=== PATIENT | female | born 1960 | race African-American/Black ===

== ENCOUNTER 2017-05-31 18:52 | Emergency (ER) | payer OTHER, SELFPAY ==
[~2017-05-31 18:52] MED LIST: ISOVUE-370 76%-LOCM 1 ML ONE
[2017-05-31] MEDS ORDERED: Acetaminophen 120 MG Suppository ONE (19:47)
[2017-05-31 19:50] LABS: #Basophils 0.1 thou/uL (0.0-0.2); #Lymphocytes 2.2 thou/uL (1.20-3.40); #Monocytes 0.7 thou/uL (0.11-0.59); %Basophils 0.7 % (0.0-1.0); %Eosinophils 0.3 % (0.0-10.0); %Lymphocytes 20.3 % (21.0-51.0); %Neutrophils 72.7 % (42.0-75.0); Hemoglobin 17.4 g/dL (12.0-16.0); Mean Corpuscular HGB CONC 32.4 g/dL (32.0-36.0); Mean Corpuscular Hemoglobin 31.2 pg (27.0-31.0); Mean Corpuscular Volume 96.4 fl (81.0-99.0); Mean Platelet Volume 8.8 fL (7.4-10.4); Platelet Count 284 thou/uL (130-400); RBC Distribution Width 12.5 % (11.5-14.5); Red Blood Cell (RBC) Count 5.55 mill/uL (4.20-5.40)
[2017-05-31 20:42] LABS: Bilirubin Small (Negative); Blood, Urine Large (Negative); Clarity CLEAR (Clear); Glucose, Urine (Dipstick) Negative (Negative); Leukocyte Negative (Negative); Nitrite Negative (Negative); Protein, Urine (Dipstick) 100 mg/dL (Neg-Trace); Specific Gravity, Urine 1.025 (1.002-1.036)
[2017-05-31 20:45] LABS: Bacteria/HPF None Seen HPF (None Seen); Hyaline Casts/LPF 0-3 HYALINE CAST LPF (0-3 Hyaline); Pathc Cast-AUWi Flag 0.67 (0-2.49); RBC/HPF GREATER THAN 50-TNTC HPF (0-3); Squamous Epithelial 0-3 HPF (0-3); WBC/HPF 0-3 HPF (0-3)
[2017-05-31] MEDS ORDERED: Lidocaine 2% Viscous Solution 10 ML, Aluminum & Magnesium Hydroxide 20 ML, Donnatal Eli... SSW SCH (20:45)
--- NOTE | 2017-05-31 21:02 | RAD ---
AP CHEST: Indication: Abdominal pain with vomiting. IMPRESSION: No acute cardiopulmonary abnormality. Cholecystectomy clips are seen within the right upper quadrant. The examination is not appreciably changed from comparison dated 10-28-16. POS: [facility]
[2017-05-31 21:14] LABS: Albumin 4.8 g/dL (3.5-5.0)
[2017-05-31 21:15] LABS: Chloride 101 mmol/L (98-107); Potassium 3.4 mmol/L (3.5-5.1); Sodium 139 mmol/L (136-145)
[2017-05-31 21:16] LABS: Calcium 10.7 mg/dL (7.8-10.44); Glucose 89 mg/dL (70-105)
[2017-05-31 21:17] LABS: Globulin 3.6 g/dL (2.4-3.5); Protein, Total 8.4 g/dL (6.0-8.3)
[2017-05-31 21:18] LABS: Anion Gap 18 mmol/L (10-20); Bilirubin, Total 0.3 mg/dL (0.2-1.2); Carbon Dioxide 23 mmol/L (22-29)
[2017-05-31 21:19] LABS: Alkaline Phosphatase 73 U/L (40-150)
[2017-05-31 21:20] LABS: Calc. Creatinine Clearance 0 mL/min (70-130); Estimated GFR-MDRD Greater than 90
[2017-05-31 21:21] LABS: AST (SGOT) 22 U/L (5-34); BUN (Urea Nitrogen) 14 mg/dL (9.8-20.1)
[2017-05-31 21:22] LABS: ALT (SGPT) 18 U/L (8-55)
[2017-05-31 21:23] LABS: Lipase 11 U/L (8-78)
[2017-05-31 21:25] LABS: CKMB 0.9 ng/mL (0-6.6); Troponin I 0.014 ng/mL (< 0.028)
[2017-05-31] MEDS ORDERED: Fentanyl 100 MCG/2 ML VIAL ONE (21:52)
[2017-05-31] MEDS ORDERED: cefTRIAXone\\ROCEPHIN 500 MG VIAL ONE (22:15)
[2017-05-31] MEDS ORDERED: Sucralfate 1 GM/10 ML UDCUP ONE (23:25)
--- NOTE | 2017-05-31 23:55 | CT ---
CTA OF THE CHEST AND ABDOMEN UTILIZING AORTIC DISSECTION PROTOCOL AND 3D REFORMATS: FINDINGS: No areas of occlusion or aneurysmal formation is evident. There is moderate atherosclerotic calcifica tions involving the abdominal aorta. Common iliacs are widely patent. Celiac, SMA, and renal arteries are patent. The MONA is patent. Lungs are clear. Gallbladder is surgically absent. There is wall thickening involving the distal stomach which may be related to under distention. Gastr itis is not excluded. There is hypodensity adjacent to the falciform ligament of the liver. The pancreas, adrenal glands, and spleen appear within normal limits. There are tiny hypodensities involving the kidneys which noris ot be characterized due to their size. There is colonic diverticulosis. There is scattered degenerative change. IMPRESSION: 1. No appreciable stenosis, occlusion, or aneurysmal formation demonstrated. 2. Suggested wall thickening involving the distal gastric body and antrum may reflect changes of unde r distention. A gastritis, however, cannot be entirely excluded. 3. Cholecystectomy. 4. Fatty infiltration of the liver adjacent to the falciform ligament. 5. Tiny renal hypodensity too small to fully characterize due to their size. 6. Colonic diverticulosis. POS: [facility]
--- NOTE | 2017-06-05 15:37 | EKG ---
Test Reason : Blood Pressure : / mmHG Vent. Rate : 077 BPM Atrial Rate : 077 BPM P-R Int : 136 ms QRS Dur : 092 ms QT Int : 390 ms P-R-T Axes : 059 011 051 degrees QTc Int : 441 ms Normal sinus rhythm Possible Left atrial enlargement ST abnormality, possible digitalis effect Abnormal ECG Confirmed by ZEE WHITNEY, ANIKA ([id number]), communications editor SANTOS CALLEJAS ([id number]) on 06/05/2017 3:37:12 PM Referred By: Confirmed By:ANIKA KOCH MD
== END 2017-06-01 | disposition home or self-care (01) ==
LOC: ERS 18:52
DX: R10.13 Epigastric pain (principal); G43.909 Migraine, unspecified, not intractable, without status migrainosus; K21.9 Gastro-esophageal reflux disease without esophagitis; J44.9 Chronic obstructive pulmonary disease, unspecified; I25.2 Old myocardial infarction; F17.210 Nicotine dependence, cigarettes, uncomplicated; Z79.899 Other long term (current) drug therapy
CPT/HCPCS: 36415; 71045; 71275; 80053; 81003; 81015; 82553; 83605; 83690; 84484; 85025; 93005; 96374; 99406; J0696; J3010

== ENCOUNTER 2017-06-03 06:08 | Inpatient (IN) | payer OTHER, SELFPAY ==
[~2017-06-03 06:08] MED LIST changes: +Iopamidol 370 76% 50 ML VIAL FS ONE
[2017-06-03] MEDS ORDERED: Pantoprazole 40 MG VIAL ONE ×2 (06:40→06:41)
[2017-06-03] MEDS ORDERED: Ondansetron HCl/PF 4 MG/2 ML Vial ONE (06:40)
[2017-06-03 06:45] LABS: #Basophils 0.1 thou/uL (0.0-0.2); #Eosinphils 0.1 thou/uL (0.0-0.7); #Monocytes 1.3 thou/uL (0.11-0.59); #Neutrophils 9.6 thou/uL (1.40-6.50); %Basophils 0.8 % (0.0-1.0); %Eosinophils 0.4 % (0.0-10.0); %Lymphocytes 15.2 % (21.0-51.0); %Monocytes 9.7 % (0.0-10.0); %Neutrophils 73.9 % (42.0-75.0); Hemoglobin 16.9 g/dL (12.0-16.0); Mean Corpuscular HGB CONC 33.5 g/dL (32.0-36.0); Mean Corpuscular Hemoglobin 31.5 pg (27.0-31.0); Mean Corpuscular Volume 94.2 fl (81.0-99.0); Mean Platelet Volume 7.6 fL (7.4-10.4); Platelet Count 338 thou/uL (130-400); RBC Distribution Width 12.2 % (11.5-14.5); Red Blood Cell (RBC) Count 5.35 mill/uL (4.20-5.40)
[2017-06-03 07:11] LABS: CKMB 1.1 ng/mL (0-6.6)
[2017-06-03 08:29] LABS: Bilirubin Negative (Negative); Blood, Urine Large (Negative); Clarity CLEAR (Clear); Glucose, Urine (Dipstick) Negative (Negative); Leukocyte Negative (Negative); Nitrite Negative (Negative); Protein, Urine (Dipstick) 30 mg/dL (Neg-Trace); Specific Gravity, Urine 1.017 (1.002-1.036); Urobilinogen 0.2 mg/dL (0.2-1.0)
[2017-06-03 08:32] LABS: Bacteria/HPF None Seen HPF (None Seen); RBC/HPF 21-50 HPF (0-3); Squamous Epithelial 0-3 HPF (0-3)
--- NOTE | 2017-06-03 08:35 | CT ---
CONTRAST ENHANCED ABDOMEN AND PELVIC CT: Comparison: 05-31-17 Indication: Pain. FINDINGS: The lung bases are clear where visualized. Prior cholecystectomy. There is a subcentimeter partially calcified left renal artery aneurysm, 5-6 mm in size. Punctate hypoattenuation of the right kidney is too small to fully characterize. No adrenal mass. No peripancreatic inflammation. No ascites or free air. There is colonic diverticulosis. No CT evidence to indicate acute appendicitis. Contrast opacif ied portions of the small bowel are nondilated. There is wall thickening of the urinary bladder, inco mpletely distended, which does limit evaluation. Prominent degenerative change at the lumbosacral jerry ction noted. Previously mentioned wall prominence of the distal stomach is grossly stable and remains limited by t he under distended state of the stomach. Mildly enlarged adjacent perigastric lymph nodes are present . IMPRESSION: 1. Chronic diverticulosis. 2. Wall prominence of the under distended urinary bladder. There is a slight area of perivesicular st randing. This is not specific. Recommend correlation with urinary laboratory values to exclude cystit is. 3. Small 5-6 mm left renal artery aneurysm, partially calcified. 4. Incompletely evaluated, as was previously mentioned, the is wall prominence of the region of the g astric antrum. The possibility of gastritis or mass not excluded. Adjacent mildly prominent lymph nod es could be reactive versus neoplastic. Follow up with gastroenterology consultation and endoscopy wo uld prove useful. POS: [facility]
[2017-06-03 08:39] LABS: Pathc Cast-AUWi Flag 2.84 (0-2.49)
[2017-06-03 08:49] LABS: Hyaline Casts/LPF 0-3 HYALINE CAST LPF (0-3 Hyaline); Manual Microscopic Reviewed? No Path Casts Seen
[2017-06-03] MEDS ORDERED: Metoclopramide HCl 10 MG/2 ML VIAL ONE (08:55)
[2017-06-03 09:06] LABS: Albumin 3.6 g/dL (3.5-5.0)
[2017-06-03 09:07] LABS: Chloride 100 mmol/L (98-107); Sodium 136 mmol/L (136-145)
[2017-06-03 09:08] LABS: Calcium 8.9 mg/dL (7.8-10.44)
[2017-06-03 09:09] LABS: Globulin 2.5 g/dL (2.4-3.5); Glucose 104 mg/dL (70-105); Protein, Total 6.1 g/dL (6.0-8.3)
[2017-06-03 09:10] LABS: Anion Gap 14 mmol/L (10-20); Bilirubin, Total 0.3 mg/dL (0.2-1.2); Carbon Dioxide 25 mmol/L (22-29)
[2017-06-03 09:11] LABS: Alkaline Phosphatase 52 U/L (40-150)
[2017-06-03 09:12] LABS: Calc. Creatinine Clearance 0 mL/min (70-130); Estimated GFR-MDRD 50
[2017-06-03 09:13] LABS: BUN (Urea Nitrogen) 24 mg/dL (9.8-20.1)
[2017-06-03 09:14] LABS: ALT (SGPT) 11 U/L (8-55); AST (SGOT) 16 U/L (5-34)
[2017-06-03 09:15] LABS: CK (CPK) 61 U/L (29-168); Lipase 20 U/L (8-78)
[2017-06-03 10:23] LABS: Troponin I 0.033 ng/mL (< 0.028)
[2017-06-03 11:07] LABS: Lactic Acid 3.9 mmol/L (0.5-2.2)
[2017-06-03 12:15] LABS: Creatinine, Urine 122.46 mg/dL (47-110)
--- NOTE | 2017-06-03 12:35 | HP-2 ---
DATE OF SERVICE: 06/03/2017 at 10:30 a.m. CODE STATUS: FULL CODE. PRIMARY CARE PHYSICIAN: Dr. Barak Ugalde. ATTENDING DOCTOR: Dr. Maynard. RESIDENT: Jimbo Barreto MD HISTORIAN: Patient. CHIEF COMPLAINT: Nausea, vomiting, and abdominal pain. HISTORY OF PRESENT ILLNESS: A 57-year-old female with past medical history of coronary artery diseas e status post RI in 2003 and stent placement, COPD, chronic back pain, and migraines, who presents wi th persistent nausea and vomiting and associated epigastric pain characterized as sharp, that has pro gressively worsened over the last few days despite being seen in the ER 2 days ago and being given Zo daniella and Bentyl and discharged home. She has had multiple episodes of nonbilious and nonbloody emesi s since then. She also endorses decreased appetite for multiple years. She had an EGD done [address] Marshall that showed ulcer. CT in the ER was suspicious for possible gastric mass. In the E R, the patient received 10 mg of IV Reglan, 20 mg of IM Bentyl, Zofran 8 mg IV, 40 mg Protonix IV, an d 1 liter bolus of normal saline. PAST MEDICAL HISTORY: 1. Coronary artery disease status post RI in 2003, status post stent. 2. Chronic obstructive pulmonary disease. 3. Chronic back pain. 4. Migraines. PAST SURGICAL HISTORY: 1. Cholecystectomy. 2. Partial hysterectomy. 3. Tonsillectomy. 4. Tubal ligation. ALLERGIES: 1. CODEINE. 2. IBUPROFEN. 3. IMITREX. 4. SUMATRIPTAN. 5. TYLENOL #3. MEDICATIONS: 1. Protonix 40 mg p.o. daily. 2. Hydrochlorothiazide 25 mg p.o. daily. 3. Carafate 1 gram p.o. 4 times a day. FAMILY HISTORY: Significant for hypertension and diabetes. SOCIAL HISTORY: The patient denied alcohol or drug use, but she endorsed a [id number] smoking hist ory, currently smoking a pack every week or two. REVIEW OF SYSTEMS: Twelve point review of systems including general, eyes, ENT, respiratory, CV, GI, , skin, musculoskeletal, neuro and psych all reviewed and were unremarkable unless otherwise state d in the HPI. PHYSICAL EXAMINATION: VITAL SIGNS: Blood pressure 164/104, pulse 89, respiratory rate 19, T-max 98.0, pulse ox 97% on room air, current weight 54 kilograms. GENERAL: Patient is alert and oriented x3, no acute distress, but is in obvious pain and having obvi ous nausea. She is well-developed, well-nourished, appropriately interactive. HEENT: Eyes: Pupils equal, round, reactive to light and accommodation. Extraocular muscles intact. Conjunctivae within normal limits. ENT: Tympanic membranes pearly chakraborty without bulging or erythema. Nasal mucosa and oropharynx slight ly dry. NECK: Supple without lymphadenopathy or thyromegaly. CARDIOVASCULAR: Regular rate and rhythm. No murmurs or gallops. RESPIRATORY: Normal effort, no retractions. LUNGS: Clear to auscultation bilaterally. SKIN: Warm and dry without cyanosis or lesions. ABDOMEN: Soft with some fullness in the epigastric region and epigastric tenderness to palpation. B owel sounds normoactive. No rigidity. No rebound tenderness. EXTREMITIES: No clubbing, cyanosis or edema. MUSCULOSKELETAL: Structure and tone within normal limits. Full range of motion. NEUROLOGIC: No focal deficits. Sensation within normal limits. PSYCHIATRIC: Appropriate. LABORATORY DATA: White blood cell count 13.0, hemoglobin 16.9, hematocrit 50.4, MCV 94, 73% neutroph ils, platelets 338. Sodium 136, potassium 3.0, chloride 100, carbon dioxide 25, BUN 24, creatinine 1 .31, glucose 104, calcium 8.3, total protein 6.1, albumin 3.6, total bilirubin 0.3, AST 16, ALT 11, a lkaline phosphatase 52, lactic acid 2.8, CK 61, CK-MB 1.1, troponin 0.03, lipase 20. UA was signific ant for large blood, 30 protein, 21-50 red blood cells, and 4-6 white blood cells. There were no dylon teria seen. EKG showed new ST depression compared to previous EKG and normal sinus rhythm. IMAGING: CT abdomen and pelvis showed chronic diverticulosis as well prominence in the region of the gastric antrum, gastritis, mass not excluded with adjacent mildly prominent lymph node (reactive billie tatiana neoplastic). ASSESSMENT AND PLAN: A 57-year-old female with intractable nausea and vomiting. 1. Intractable nausea and vomiting. Admitted to inpatient tele. Consult GI. CT suspicious for pos sible gastric mass, etiology of intractable nausea and vomiting, not clear at this time, possibly se condary to mass versus gastritis versus ulcer. No signs of obstruction on CT. The patient is n.p.o. P.r.n. Zofran and Reglan and supportive therapy. 2. Acute kidney injury, likely prerenal, likely secondary to dehydration. 3. IV fluids, normal saline at 100 mL an hour. Trend GFR, it appears looking at past visits, the shweta aguiar's baseline creatinine has been 0.5-0.4 in the past. 4. Hypokalemia, currently 3.1. Replace and continue to monitor. 5. Hyperlactatemia likely secondary to dehydration/hypoperfusion. Bolus 1 liter of normal saline in the ER. We will continue IV fluids, normal saline at 100 mL an hour. 6. Indeterminate troponins. The patient seems asymptomatic. Denied chest pain. We will trend trop onins and CK-MB possibly due to demand versus hypoperfusion. 7. Dehydration, likely secondary to #1. IV fluids, normal saline at 100 mL an hour. 8. Diet n.p.o. 9. Code status: FULL CODE. 10. Activity: ad harrison. 11. Deep venous thrombosis prophylaxis, sequential compression devices. 12. Microscopic hematuria. The patient is asymptomatic. Check urine cultures and continue to monit or. DISPOSITION AND LENGTH OF HOSPITAL STAY: Two days. Symptomatic medication will be provided. History and physical exam as well as management discussed with Dr. Maynard.
[2017-06-03 12:49] LABS: Troponin I 0.028 ng/mL (< 0.028)
[2017-06-03] MEDS ORDERED: Acetaminophen 325 MG TAB PO PRN (13:01)
[2017-06-03] MEDS ORDERED: Ondansetron HCl/PF 4 MG/2 ML Vial IVP PRN (13:01)
--- NOTE | 2017-06-03 14:30 | CON ---
DATE OF CONSULTATION: 06/03/2017 HISTORY OF PRESENT ILLNESS: The patient is a 57-year-old female with a 4-5 day history of intractabl e nausea and vomiting. She reports she has been unable to swallow or keep food down because of vomit ing. She also complains of severe epigastric pain. She has had similar type symptoms in the past an d has undergone an upper endoscopy by Dr. Marshall, the last being in 08/2011 at which time she had an an tral ulcer. She does use BC Powder. The patient underwent an EGD back in 08/2011, which showed antr al ulcer. The patient takes BC powder on a daily basis. She reports 2-3 times per day. She is an a ctive smoker. PAST MEDICAL HISTORY: Significant for gastroesophageal reflux, gastric ulcer, migraine headaches, hy perlipidemia and chronic back pain. PAST SURGICAL HISTORY: Includes cholecystectomy, hysterectomy, tonsillectomy and tubal ligation. MEDICATIONS: Include pantoprazole 40 mg p.o. q. day, dicyclomine p.r.n., an unknown antihypertensive . ALLERGIES: Include IMITREX and TYLENOL #3. SOCIAL HISTORY: She does smoke. Does not drink. FAMILY HISTORY: Negative for GI or liver disease. REVIEW OF SYSTEMS: Ten systems were reviewed and were negative except for above. PHYSICAL EXAMINATION: GENERAL: Shows a well-developed, well-nourished female in no acute distress. VITAL SIGNS: Stable. She is afebrile. HEENT: Unremarkable. NECK: Supple. CHEST: Clear. CARDIOVASCULAR: Regular rate and rhythm. ABDOMEN: Soft, tender in the epigastric area without rebound or guarding. Bowel sounds are present and normoactive. RECTAL: Deferred. EXTREMITIES: Normal. NEUROLOGIC: Nonfocal. ASSESSMENT: 1. Epigastric pain, intractable nausea and vomiting. 2. History of peptic ulcer disease. 3. Gastroesophageal reflux disease. 4. Positive tobacco use. 5. Chronic migraine headaches, taking BC Powder daily. RECOMMENDATIONS: 1. IV PPI. 2. EGD tomorrow. 3. Serial hemoglobin and hematocrit.
[2017-06-03] MEDS: Sodium Chloride 0.9% 1,000 ML IV SCH ×2 (14:45→22:25)
[2017-06-03] MEDS: Potassium Chloride 20 MEQ in Sodium Chloride 0.9% 250 ML 250 ML IVPB SCH ×3 (14:58→23:57)
[2017-06-03 16:28] LABS: Lactic Acid 1.7 mmol/L (0.5-2.2)
[2017-06-03 16:37] LABS: Troponin I 0.023 ng/mL (< 0.028)
[2017-06-03] MEDS ORDERED: Dicyclomine 10 MG CAP PO PRN (18:35)
[2017-06-03] MEDS: traMADol HCl 50 MG TAB PO PRN (18:47)
[2017-06-04] MEDS: traMADol HCl 50 MG TAB PO PRN ×3 (00:50→16:51)
[2017-06-04 01:27] LABS: Amphetamine Not Detected (NotDetected); Barbiturates Screen Detected (NotDetected); Benzodiazepine Screen Not Detected (NotDetected); Cocaine Metabolite Screen Not Detected (NotDetected); Medtox Control Line Valid? VALID (VALID); Medtox Reader # READER 4; Methadone Not Detected (NotDetected); Methamphetamine Not Detected (NotDetected); Opiate Screen Detected (NotDetected); Oxycodone Screen Not Detected (NotDetected); Phencyclidine (PCP) Not Detected (NotDetected); THC/Cannabinoid Screen Not Detected (NotDetected); Tricyclic Screen Not Detected (NotDetected)
[2017-06-04] MEDS: Sodium Chloride 0.9% 1,000 ML IV SCH ×3 (03:31→11:34)
--- NOTE | 2017-06-04 05:45 | HP ---
DATE OF SERVICE: 06/03/2017 CHIEF COMPLAINT: Nausea, vomiting, and abdominal pain. HISTORY OF PRESENT ILLNESS: The patient is a 57-year-old female with past medical history of coronar y artery disease, COPD, chronic back pain, and migraines who presented to the ER with several day his tory of nausea and vomiting. The patient noted that she presented to the ER approximately 4 days ago for similar symptoms and was given Zofran and potentially Bentyl, although she denies that at home. Over the course of the next couple of days, her abdominal pain worsened and she then started develop ing diarrhea. The patient notes that she has not been able to keep down either solids or liquids at this time. CT was done in the ER which was suspicious for gastric mass. The patient has been given I V Reglan, Bentyl, Zofran, and Protonix as well as fluid bolus. For the full past medical history, please see the resident's dictation as well as the review of monica figueroa. PHYSICAL EXAMINATION: VITAL SIGNS: Blood pressure 164/104, pulse 89, respiration rate 19, temperature 98.0, pulse ox is 97 % on room air. GENERAL: The patient is awake, alert, and oriented, in no acute distress, but is obviously nauseated and dry heaving after the abdominal exam. EYES: Pupils are equal, round, reactive to light and accommodation. Extraocular muscles intact. ENT: Oropharynx and nasopharynx are without erythema, but she does have dry mucous membranes. NECK: Supple without lymphadenopathy, thyromegaly or bruits. CARDIOVASCULAR: Regular rate and rhythm without murmurs, gallops, or rubs. LUNGS: Clear to auscultation bilaterally without wheezing or rhonchi. ABDOMEN: Soft, nondistended, with tenderness to palpation in the epigastric region. She has no rebo und tenderness or rigidity. Bowel sounds are present. EXTREMITIES: There is no clubbing, cyanosis, or edema. LABORATORY: 1. CBC: WBC 13.0, hemoglobin 16.9, hematocrit 50.4, platelets 338. 2. CMP: Sodium 136, potassium 3.0, chloride 100, bicarbonate 25, BUN 24, creatinine 1.31, glucose 1 04, calcium 8.3, total protein 6.1, albumin 3.6, total bilirubin 0.3, AST 16, ALT 11, alkaline phosph atase 52. 3. Lactic acid 2.8. 4. Cardiac enzymes: CK 61, CK-MB 1.1, troponin 0.03. 5. Lipase 20. 6. Urinalysis showed large blood, protein 30 and 4-6 white blood cells, but no bacteria. IMAGIN. EKG showed no ST depression compared to previous exams. 2. CT of abdomen and pelvis showed chronic diverticulosis as well as a possible mass near the region of the gastric antrum. ASSESSMENT AND PLAN: 1. Intractable nausea, vomiting, and diarrhea. Patient will be admitted to telemetry. GI will be c onsulted as the patient probably needs an EGD and potential biopsy of this mass. She will be given m edications for nausea as well as put on IV fluids. 2. Diarrhea: We will get stool studies as well. 3. Acute kidney injury: IV fluids and trend the creatinine. This is likely secondary to dehydratio n. 4. Hypokalemia: Replace potassium and recheck in the morning. 5. Lactic acidosis: Continue IV fluids and trend the lactate. 6. Indeterminate troponins. The patient is being admitted to telemetry. This could be due from dem and ischemia secondary to her dehydration. Further workup will be determined based on her clinical c ourse. 7. Please see Dr. Barreto's dictation for the full history, physical, assessment and plan. We discuss ed the case and I agree with his documentation and repeated pertinent portions of the history and phy sical myself.
[2017-06-04 06:28] LABS: #Basophils 0.1 thou/uL (0.0-0.2); #Eosinphils 0.1 thou/uL (0.0-0.7); #Lymphocytes 2.4 thou/uL (1.20-3.40); #Neutrophils 6.1 thou/uL (1.40-6.50); %Basophils 0.6 % (0.0-1.0); %Eosinophils 0.8 % (0.0-10.0); %Lymphocytes 25.1 % (21.0-51.0); %Monocytes 10.1 % (0.0-10.0); %Neutrophils 63.4 % (42.0-75.0); Mean Corpuscular HGB CONC 32.9 g/dL (32.0-36.0); Mean Corpuscular Hemoglobin 31.7 pg (27.0-31.0); Mean Corpuscular Volume 96.3 fl (81.0-99.0); Mean Platelet Volume 7.7 fL (7.4-10.4); Platelet Count 281 thou/uL (130-400); RBC Distribution Width 12.2 % (11.5-14.5); Red Blood Cell (RBC) Count 4.42 mill/uL (4.20-5.40); White Blood Cell (WBC) Count 9.6 thou/uL (4.8-10.8)
[2017-06-04 06:47] LABS: Anion Gap 13 mmol/L (10-20); BUN (Urea Nitrogen) 11 mg/dL (9.8-20.1); Calc. Creatinine Clearance 73 mL/min (70-130); Calcium 9.1 mg/dL (7.8-10.44); Carbon Dioxide 20 mmol/L (22-29); Chloride 108 mmol/L (98-107); Estimated GFR-MDRD Greater than 90; Glucose 100 mg/dL (70-105); Potassium 3.4 mmol/L (3.5-5.1); Sodium 138 mmol/L (136-145)
[2017-06-04] MEDS ORDERED: Lidocaine 1% PF 5 ML VIAL ONE (06:59)
[2017-06-04] MEDS ORDERED: PROPOFOL 200 MG/20 ML VIAL ONE (06:59)
--- NOTE | 2017-06-04 08:38 | PDOC.FM ---
- Subjective Subjective: Pt states that she feels better today and has improved n/v and associated abd pain. She is scheduled for an EGD this morning. There were no acute events over night. - Objective MAR Reviewed: Yes Vital Signs & Weight: Vital Signs (12 hours) Temp Pulse Resp BP Pulse Ox 06/04/17 04:20 94 L 06/04/17 04:00 99.3 F 80 18 132/71 94 L 06/04/17 00:45 77 16 179/92 H 96 Weight Weight 54.476 kg I&O: 06/03/17 06/04/17 06/05/17 06:59 06:59 06:59 Intake Total 1640 Output Total 650 Balance 990 Result Diagrams: 06/04/17 05:54 06/04/17 05:54 Phys Exam - Physical Examination Constitutional: NAD HEENT: PERRLA, moist MMs Neck: no nodes, no JVD, supple Respiratory: clear to auscultation bilateral Cardiovascular: RRR, no significant murmur Gastrointestinal: soft, non-tender, no distention, positive bowel sounds Musculoskeletal: no edema Neurological: non-focal Psychiatric: normal affect, A&O x 3 Skin: no rash, normal turgor Dx/Plan (1) Intractable nausea and vomiting Code(s): R11.2 - NAUSEA WITH VOMITING, UNSPECIFIED Status: Acute (2) Acute kidney injury Code(s): N17.9 - ACUTE KIDNEY FAILURE, UNSPECIFIED Status: Resolved (3) HTN (hypertension) Code(s): I10 - ESSENTIAL (PRIMARY) HYPERTENSION Status: Chronic Qualifiers: Hypertension type: essential hypertension Qualified Code(s): I10 - Essential (primary) hypertension (4) GERD (gastroesophageal reflux disease) Code(s): K21.9 - GASTRO-ESOPHAGEAL REFLUX DISEASE WITHOUT ESOPHAGITIS Status: Chronic Qualifiers: Esophagitis presence: esophagitis presence not specified Qualified Code(s) : K21.9 - Gastro-esophageal reflux disease without esophagitis (5) Hypokalemia Code(s): E87.6 - HYPOKALEMIA Status: Acute - Plan Plan: 1. intractable nausea/vomiting - n/v is now controlled - Per GI, pt will have an EGD today. Previous EGD found an antral ulcer. Current CT shows concern for antral mass - further plan pending EGD results and GI recommendation 2. GENOVEVA - 2/2 vomiting - resolved w/IVF -continue to monitor bmp 3. hypokalemia - 2/2 to vomiting - improved today, will replace in am if it continues to be low. 4. HTN - there is likely some amount of untreated chronic HTN, however periodic peaks are probably related to pain - continue to monitor BP and consider starting antihypertensive if she continues to be consistently hypertensive - out patient follow up recommended. 5. GERD - continue protonix Dispo: pt is stable today. Possibly ready for dc today pending results of EGD.
[2017-06-04] MEDS ORDERED: Pantoprazole 40 MG VIAL IVP SCH (09:00)
[2017-06-04 12:33] VITALS: BMI 22.6
--- NOTE | 2017-06-04 14:03 | OP ---
PREOPERATIVE DIAGNOSES: 1. Abnormal CT scan. 2. Persistent nausea and vomiting. DESCRIPTION OF PROCEDURE: After informed consent was obtained, the patient was placed in the left la teral decubitus position. Anesthesia was administered per the Anesthesia Department. Forward endosc ope was inserted into the esophagus under direct visualization with ease and passed to the second por tion of the duodenum with ease. Second portion of the duodenum and duodenal bulb were normal. The p ylorus was normal. The antrum showed a large 3 cm ulcer. This ulcer had a clean white base. No act dat bleeding, no visible vessels were seen. The ulcer edge was biopsied. Retroflexion in the stomac h was normal. The esophagus was normal throughout. ASSESSMENT: 1. Large antral ulcer - clean white based ulcer without bleeding or visible vessel; status post biop sy. 2. Otherwise, normal esophagogastroduodenoscopy. RECOMMENDATIONS: 1. PPI chronically. 2. Discontinue BC powder. 3. Stop smoking. 4. Stable from GI standpoint for discharge.
[2017-06-04] MEDS ORDERED: Ondansetron HCl/PF 4 MG/2 ML Vial IVP PRN (14:35)
[2017-06-04] MEDS ORDERED: Ondansetron ODT 4 MG TAB PO PRN (15:02)
[2017-06-04 17:53] VITALS: BP 173/81; TEMP 99.5
--- NOTE | 2017-06-07 10:35 | DIS-2 ---
DATE OF ADMISSION: 06/03/2017 DATE OF DISCHARGE: 06/04/2017 RESIDENT: Bo Harvey D.O. ADMITTING ATTENDING: Ana Rosa Maynard M.D. DISCHARGE ATTENDING: Ana Rosa Maynard M.D. CONSULTATIONS: GI, Dr. Rao Valente. PROCEDURE PERFORMED: Esophagogastroduodenoscopy. PRIMARY DIAGNOSES: Intractable nausea and vomiting secondary to antral gastric ulcer. SECONDARY DIAGNOSES: Microscopic hematuria, acute kidney injury, hypokalemia, dehydration, indetermi ines troponins, COPD, GERD and hypertension. DISCHARGE MEDICATIONS: Bentyl 20 mg p.o. t.i.d., Protonix 40 mg p.o. daily, tramadol 50 mg p.o. q.6 hours p.r.n. pain, Symbicort 160/4.5 mg 1 puff INH b.i.d. and Zofran 4 mg p.o. q.6 hours p.r.n. nause a and vomiting. DISCONTINUED MEDICATIONS: NSAIDs and aspirin. HOSPITAL COURSE: The patient was admitted to the hospital due to intractable nausea and vomiting and associated dehydration. On CT abdomen, there was a concern for possible mass in the antrum of the dima guidry. It had been since at least 2016 since her previous EGD where a biopsy was noted, the patient states that due to a chronic headache, she has been taking BC Powder multiple times daily for an ext ended period of time. GI was consulted who then performed an EGD. The EGD found the antral ulcer wi thout an obvious superficial vessel. Biopsy was taken and patient was determined to be appropriate f or outpatient care. Additionally, microscopic hematuria was incidentally noted on a UA and in the ER , it was recommended that the patient seek further follow up from a PCP for this hematuria. DISPOSITION: Stable. DISCHARGE INSTRUCTIONS: 1. Location: Home. 2. Diet: Regular diet. 3. Activity: Ad harrison. 4. Followup: With Dr. Valente within a week. Follow up with PCP, Dr. Ugalde within a week and follow up with Dr. Solo, other urologist for the microhematuria.
== END 2017-06-04 18:35 | disposition home or self-care (01) | DRG 384 ==
LOC: ERS 06:08 → 2NO 14:22
PROVIDERS: ADMIT Family Medicine; ATTEND Family Medicine
PROC: 0DB78ZX Excision of Stomach, Pylorus, Via Natural or Artificial Opening Endoscopic, Diagnostic (ICD-10-PCS; principal; 2017-06-03)
DX: K25.9 Gastric ulcer, unspecified as acute or chronic, without hemorrhage or perforation (principal); N17.9 Acute kidney failure, unspecified; E87.2 Acidosis; R11.2 Nausea with vomiting, unspecified; G43.909 Migraine, unspecified, not intractable, without status migrainosus; I25.10 Atherosclerotic heart disease of native coronary artery without angina pectoris; J44.9 Chronic obstructive pulmonary disease, unspecified; G89.29 Other chronic pain; M54.9 Dorsalgia, unspecified; E87.6 Hypokalemia; E86.0 Dehydration; I25.2 Old myocardial infarction; Z95.5 Presence of coronary angioplasty implant and graft; Z88.6 Allergy status to analgesic agent; Z88.5 Allergy status to narcotic agent; Z88.8 Allergy status to other drugs, medicaments and biological substances; F17.210 Nicotine dependence, cigarettes, uncomplicated; K57.30 Diverticulosis of large intestine without perforation or abscess without bleeding; R31.21 Asymptomatic microscopic hematuria; K21.9 Gastro-esophageal reflux disease without esophagitis; I10 Essential (primary) hypertension; E78.5 Hyperlipidemia, unspecified
CPT/HCPCS: 36415; 74177; 80048; 80053; 80306; 81003; 81015; 82550; 82553; 82570; 83605; 83690; 83935; 84300; 84484; 85025; 87086; 88305; 88312; 93005; 96361; 96372; 96374; 96375; 99406; C9113; J2001; J2405; J2704; J2765; J3480; J7050

== ENCOUNTER 2017-10-03 09:17 | Emergency (ER) | payer OTHER ==
[2017-10-03 10:35] LABS: ALT (SGPT) 10 U/L (8-55); AST (SGOT) 15 U/L (5-34); Albumin 4.5 g/dL (3.5-5.0); Alkaline Phosphatase 74 U/L (40-150); Anion Gap 17 mmol/L (10-20); BUN (Urea Nitrogen) 10 mg/dL (9.8-20.1); Bilirubin, Total 0.3 mg/dL (0.2-1.2); Calc. Creatinine Clearance 0 mL/min (70-130); Calcium 9.9 mg/dL (7.8-10.44); Carbon Dioxide 20 mmol/L (22-29); Chloride 106 mmol/L (98-107); Estimated GFR-MDRD Greater than 90; Globulin 3.2 g/dL (2.4-3.5); Glucose 104 mg/dL (70-105); Potassium 3.5 mmol/L (3.5-5.1); Protein, Total 7.7 g/dL (6.0-8.3); Sodium 139 mmol/L (136-145)
[2017-10-03 10:37] LABS: CKMB 0.6 ng/mL (0-6.6)
[2017-10-03 10:41] LABS: Lipase 9 U/L (8-78)
[2017-10-03] MEDS ORDERED: Pantoprazole 40 MG VIAL ONE (10:53)
[2017-10-03] MEDS ORDERED: Ondansetron ODT 4 MG TAB ONE (10:54)
[2017-10-03 11:00] LABS: Hemoglobin 16.2 g/dL (12.0-16.0); Lymphocytes 14 % (21-51); MDiff Complete? YES; Mean Corpuscular HGB CONC 34.4 g/dL (32.0-36.0); Mean Corpuscular Hemoglobin 31.7 pg (27.0-31.0); Mean Corpuscular Volume 92.2 fl (81.0-99.0); Mean Platelet Volume 7.2 fL (7.4-10.4); Monocytes 3 % (0-10); Neutrophil 80 % (42-75); PLT Morphology Comment Appears Adequate; Platelet Count 328 thou/uL (130-400); RBC Distribution Width 12.6 % (11.5-14.5); RBC Morphology Normal; Reactive Lymphocytes 1 % (0-10); Red Blood Cell (RBC) Count 5.12 mill/uL (4.20-5.40); White Blood Cell (WBC) Count 11.1 thou/uL (4.8-10.8)
== END 2017-10-03 11:58 | disposition home or self-care (01) ==
LOC: ERS 09:17
DX: R10.13 Epigastric pain (principal); I10 Essential (primary) hypertension; I25.2 Old myocardial infarction; G43.909 Migraine, unspecified, not intractable, without status migrainosus; J44.9 Chronic obstructive pulmonary disease, unspecified; K21.9 Gastro-esophageal reflux disease without esophagitis; F17.210 Nicotine dependence, cigarettes, uncomplicated; Z79.899 Other long term (current) drug therapy
CPT/HCPCS: 36415; 80053; 82553; 83690; 84484; 85025; 93005; 94760; 96361; 96374; C9113; Q0162

== ENCOUNTER 2017-12-15 16:43 | Outpatient (CLI) | payer OTHER | END 2017-12-15 16:44 | disposition home or self-care (01) | LOC: BICRAD 16:43 | PROVIDERS: ATTEND Family Medicine | DX: M54.5 Low back pain (principal); M25.551 Pain in right hip; M25.552 Pain in left hip; M47.896 Other spondylosis, lumbar region | CPT/HCPCS: 72100 ==

== ENCOUNTER 2018-08-01 07:29 | Emergency (ER) | payer OTHER ==
[2018-08-01] MEDS ORDERED: Ondansetron PF 4 MG/2 ML Vial ONE (07:45)
[2018-08-01 07:58] LABS: Bilirubin Small (Negative); Blood, Urine Large (Negative); Clarity CLEAR (Clear); Glucose, Urine (Dipstick) Negative (Negative); Leukocyte Negative (Negative); Nitrite Negative (Negative); Protein, Urine (Dipstick) 300 mg/dL (Neg-Trace); Specific Gravity, Urine 1.035 (1.002-1.036); pH, Urine 5.5 (5.0-9.0)
[2018-08-01 08:01] LABS: Bacteria/HPF None Seen HPF (None Seen); Hyaline Casts/LPF 7-10 HYALINE CAST LPF (0-3 Hyaline); Pathc Cast-AUWi Flag 1.59 (0-2.49); RBC/HPF GREATER THAN 50-TNTC HPF (0-3); Squamous Epithelial 0-3 HPF (0-3)
[2018-08-01] MEDS ORDERED: Mag-Al 1200 mg/1200 mg/30 ML UDCUP ONE (08:15)
[2018-08-01] MEDS ORDERED: Lidocaine Viscous Sol 2% 15 ml UD Cup ONE (08:15)
[2018-08-01 08:17] LABS: #Basophils 0.1 thou/uL (0.0-0.2); #Eosinphils 0.1 thou/uL (0.0-0.7); #Lymphocytes 1.8 thou/uL (1.20-3.40); #Monocytes 0.5 thou/uL (0.11-0.59); %Basophils 0.5 % (0.0-1.0); %Eosinophils 0.7 % (0.0-10.0); %Lymphocytes 14.1 % (21.0-51.0); %Monocytes 4.3 % (0.0-10.0); %Neutrophils 80.3 % (42.0-75.0); Hemoglobin 15.8 g/dL (12.0-16.0); Mean Corpuscular HGB CONC 32.3 g/dL (32.0-36.0); Mean Corpuscular Hemoglobin 30.2 pg (27.0-31.0); Mean Corpuscular Volume 93.4 fL (78.0-98.0); Mean Platelet Volume 8.1 fL (7.4-10.4); Platelet Count 409 thou/uL (130-400); RBC Distribution Width 13.2 % (11.5-14.5); Red Blood Cell (RBC) Count 5.22 mill/uL (4.20-5.40); White Blood Cell (WBC) Count 12.5 thou/uL (4.8-10.8)
[2018-08-01 08:35] LABS: ALT (SGPT) 10 U/L (8-55); AST (SGOT) 14 U/L (5-34); Albumin 4.5 g/dL (3.5-5.0); Alkaline Phosphatase 106 U/L (40-150); Anion Gap 17 mmol/L (10-20); BUN (Urea Nitrogen) 16 mg/dL (9.8-20.1); Bilirubin, Total 0.2 mg/dL (0.2-1.2); Calc. Creatinine Clearance 0 mL/min (70-130); Carbon Dioxide 21 mmol/L (22-29); Chloride 107 mmol/L (98-107); Estimated GFR-MDRD Greater than 90; Globulin 3.6 g/dL (2.4-3.5); Glucose 115 mg/dL (70-105); Lipase 13 U/L (8-78); Potassium 3.3 mmol/L (3.5-5.1); Protein, Total 8.1 g/dL (6.0-8.3); Sodium 142 mmol/L (136-145)
[2018-08-01] MEDS ORDERED: Famotidine/PF 20 mg/2ml Vial ONE (09:38)
[2018-08-01] MEDS ORDERED: Haloperidol Lactate 5 MG/ML VIAL ONE (10:35)
== END 2018-08-01 13:11 | disposition home or self-care (01) ==
LOC: ERS 07:29
DX: R11.2 Nausea with vomiting, unspecified (principal); I10 Essential (primary) hypertension; G43.909 Migraine, unspecified, not intractable, without status migrainosus; J44.9 Chronic obstructive pulmonary disease, unspecified; K21.9 Gastro-esophageal reflux disease without esophagitis; I25.2 Old myocardial infarction; F17.210 Nicotine dependence, cigarettes, uncomplicated
CPT/HCPCS: 74022; 80053; 81003; 81015; 83690; 84484; 85025; 86677; 93005; 96361; 96374; 96375; J1630; J2405; S0028

== ENCOUNTER 2018-08-27 16:54 | Emergency (ER) | payer OTHER ==
[2018-08-27 17:24] LABS: #Basophils 0.1 thou/uL (0.0-0.2); #Eosinphils 0.1 thou/uL (0.0-0.7); #Lymphocytes 2.7 thou/uL (1.20-3.40); #Monocytes 0.6 thou/uL (0.11-0.59); #Neutrophils 6.2 thou/uL (1.40-6.50); %Basophils 1.1 % (0.0-1.0); %Eosinophils 1.1 % (0.0-10.0); %Lymphocytes 27.6 % (21.0-51.0); %Monocytes 5.9 % (0.0-10.0); %Neutrophils 64.3 % (42.0-75.0); Hemoglobin 15.8 g/dL (12.0-16.0); Mean Corpuscular HGB CONC 33.4 g/dL (32.0-36.0); Mean Corpuscular Hemoglobin 30.9 pg (27.0-31.0); Mean Corpuscular Volume 92.7 fL (78.0-98.0); Mean Platelet Volume 8.1 fL (7.4-10.4); Platelet Count 309 thou/uL (130-400); RBC Distribution Width 12.7 % (11.5-14.5); Red Blood Cell (RBC) Count 5.11 mill/uL (4.20-5.40); White Blood Cell (WBC) Count 9.7 thou/uL (4.8-10.8)
[2018-08-27 17:45] LABS: ALT (SGPT) 10 U/L (8-55); AST (SGOT) 17 U/L (5-34); Albumin 4.5 g/dL (3.5-5.0); Alkaline Phosphatase 98 U/L (40-150); Anion Gap 14 mmol/L (10-20); BUN (Urea Nitrogen) 8 mg/dL (9.8-20.1); Bilirubin, Total 0.4 mg/dL (0.2-1.2); Calc. Creatinine Clearance 0 mL/min (70-130); Carbon Dioxide 28 mmol/L (22-29); Chloride 101 mmol/L (98-107); Estimated GFR-MDRD Greater than 90; Globulin 3.2 g/dL (2.4-3.5); Glucose 84 mg/dL (70-105); Lipase 8 U/L (8-78); Potassium 3.1 mmol/L (3.5-5.1); Protein, Total 7.7 g/dL (6.0-8.3); Sodium 140 mmol/L (136-145)
[2018-08-27] MEDS ORDERED: Dicyclomine 20 MG TAB ONE (17:59)
[2018-08-27] MEDS ORDERED: diphenhydrAMINE 50 MG/ML VIAL ONE (19:00)
[2018-08-27] MEDS ORDERED: Metoclopramide HCl 10 MG/2 ML VIAL ONE (19:00)
== END 2018-08-27 20:08 | disposition home or self-care (01) ==
LOC: ERS 16:54
DX: R10.13 Epigastric pain (principal); R00.0 Tachycardia, unspecified; R11.2 Nausea with vomiting, unspecified; I10 Essential (primary) hypertension; G43.909 Migraine, unspecified, not intractable, without status migrainosus; J44.9 Chronic obstructive pulmonary disease, unspecified; K21.9 Gastro-esophageal reflux disease without esophagitis; I25.2 Old myocardial infarction; F17.210 Nicotine dependence, cigarettes, uncomplicated; Z79.899 Other long term (current) drug therapy
CPT/HCPCS: 36415; 80053; 83690; 84484; 85025; 93005; 96361; 96365; 96375; J1200; J2765

== ENCOUNTER 2018-09-13 17:09 | Emergency (ER) | payer OTHER ==
[~2018-09-13 17:09] MED LIST changes: -Iopamidol 370 76% 50 ML VIAL FS ONE
[2018-09-13 18:59] LABS: #Basophils 0.1 thou/uL (0.0-0.2); #Lymphocytes 1.9 thou/uL (1.20-3.40); #Monocytes 0.4 thou/uL (0.11-0.59); #Neutrophils 8.2 thou/uL (1.40-6.50); %Basophils 0.6 % (0.0-1.0); %Eosinophils 0.4 % (0.0-10.0); %Lymphocytes 18.3 % (21.0-51.0); %Monocytes 3.8 % (0.0-10.0); %Neutrophils 76.9 % (42.0-75.0); Hemoglobin 16.6 g/dL (12.0-16.0); Mean Corpuscular HGB CONC 32.1 g/dL (32.0-36.0); Mean Corpuscular Hemoglobin 30.1 pg (27.0-31.0); Mean Corpuscular Volume 93.7 fL (78.0-98.0); Mean Platelet Volume 7.5 fL (7.4-10.4); Platelet Count 397 thou/uL (130-400); RBC Distribution Width 13.1 % (11.5-14.5); White Blood Cell (WBC) Count 10.6 thou/uL (4.8-10.8)
[2018-09-13 19:19] LABS: ALT (SGPT) 12 U/L (8-55); AST (SGOT) 20 U/L (5-34); Albumin 4.8 g/dL (3.5-5.0); Alkaline Phosphatase 113 U/L (40-150); Anion Gap 19 mmol/L (10-20); BUN (Urea Nitrogen) 8 mg/dL (9.8-20.1); Bilirubin, Total 0.3 mg/dL (0.2-1.2); Calc. Creatinine Clearance 0 mL/min (70-130); Calcium 10.3 mg/dL (7.8-10.44); Carbon Dioxide 21 mmol/L (22-29); Chloride 105 mmol/L (98-107); Estimated GFR-MDRD Greater than 90; Globulin 3.7 g/dL (2.4-3.5); Glucose 96 mg/dL (70-105); Potassium 3.7 mmol/L (3.5-5.1); Protein, Total 8.5 g/dL (6.0-8.3); Sodium 141 mmol/L (136-145)
[2018-09-13 19:30] LABS: Bilirubin Negative (Negative); Blood, Urine Large (Negative); Clarity CLOUDY (Clear); Glucose, Urine (Dipstick) Negative (Negative); Leukocyte Negative (Negative); Nitrite Negative (Negative); Protein, Urine (Dipstick) 300 mg/dL (Neg-Trace); Specific Gravity, Urine 1.022 (1.002-1.036)
[2018-09-13 19:31] LABS: Hyaline Casts/LPF 4-6 HYALINE CAST LPF (0-3 Hyaline); Pathc Cast-AUWi Flag 0.95 (0-2.49)
[2018-09-13 19:46] LABS: Bacteria/HPF 1+ HPF (None Seen); RBC/HPF GREATER THAN 50-TNTC HPF (0-3)
[2018-09-13 19:47] LABS: Renal Epithelial None Seen HPF (0-3); Transitional Epithelial NONE SEEN HPF (0-3)
[2018-09-13] MEDS ORDERED: Ondansetron ODT 4 MG TAB ONE (20:14)
[2018-09-13] MEDS ORDERED: Morphine 4 MG/ML VIAL ONE (20:56)
--- NOTE | 2018-09-13 22:30 | CT ---
ABDOMEN AND PELVIC CT SCAN WITH IV CONTRAST: 09/13/18 HISTORY: Hematuria and abdominal pain. COMPARISON: 06/03/17. FINDINGS: The lung bases appear clear. Status post cholecystectomy with moderate dilatation of the common bile duct up to 1.1 cm with some central intrahepatic ductal dilatation but stable from prior study. Pancr eas, spleen, adrenal glands are unremarkable. Small stable left renal artery aneurysm. Bilateral laura l cysts including two immediately adjacent small cysts in the upper pole of the left kidney which are stable. Focal abnormal wall thickening of the antrum of the stomach which has not significantly bunch ged from the prior 06/03/17 study. No abnormal fluid collection within the abdomen or pelvis. Colonic d iverticulosis without acute diverticulitis. Normal appearing appendix. IMPRESSION: Stable appearing abnormal wall thickening within the antrum of the stomach. Stable dilatation of the common bile duct and intrahepatic ducts status post cholecystectomy. Stable bilateral renal cysts and small left renal artery aneurysm. No evidence for other significant acute process. POS: [facility]
[2018-09-13] MEDS ORDERED: hydrALAZINE 20 MG/ML VIAL ONE (23:04)
[2018-09-14] MEDS ORDERED: Morphine 4 MG/ML VIAL ONE (00:19)
[2018-09-14] MEDS ORDERED: Ondansetron PF 4 MG/2 ML Vial ONE (00:19)
== END 2018-09-14 00:58 | disposition home or self-care (01) ==
LOC: ERS 17:09
DX: K21.9 Gastro-esophageal reflux disease without esophagitis (principal); J44.9 Chronic obstructive pulmonary disease, unspecified; G43.909 Migraine, unspecified, not intractable, without status migrainosus; I10 Essential (primary) hypertension; F17.210 Nicotine dependence, cigarettes, uncomplicated; I25.2 Old myocardial infarction; Z79.891 Long term (current) use of opiate analgesic; Z79.899 Other long term (current) drug therapy
CPT/HCPCS: 36415; 74177; 80053; 81003; 81015; 83690; 85025; 96374; 96375; 96376; J0360; J2270; J2405; Q0162; Q9966

== ENCOUNTER 2018-09-15 07:38 | Emergency (ER) | payer OTHER ==
[2018-09-15 08:15] LABS: #Basophils 0.1 thou/uL (0.0-0.2); #Eosinphils 0.1 thou/uL (0.0-0.7); #Lymphocytes 2.4 thou/uL (1.20-3.40); #Monocytes 0.9 thou/uL (0.11-0.59); #Neutrophils 8.6 thou/uL (1.40-6.50); %Basophils 1.1 % (0.0-1.0); %Eosinophils 0.6 % (0.0-10.0); %Lymphocytes 19.8 % (21.0-51.0); %Monocytes 7.1 % (0.0-10.0); %Neutrophils 71.4 % (42.0-75.0); Hemoglobin 16.4 g/dL (12.0-16.0); Mean Corpuscular HGB CONC 33.8 g/dL (32.0-36.0); Mean Corpuscular Hemoglobin 30.6 pg (27.0-31.0); Mean Corpuscular Volume 90.6 fL (78.0-98.0); Mean Platelet Volume 7.5 fL (7.4-10.4); Platelet Count 388 thou/uL (130-400); RBC Distribution Width 12.8 % (11.5-14.5); Red Blood Cell (RBC) Count 5.36 mill/uL (4.20-5.40); White Blood Cell (WBC) Count 12.1 thou/uL (4.8-10.8)
[2018-09-15 08:38] LABS: ALT (SGPT) 13 U/L (8-55); AST (SGOT) 17 U/L (5-34); Albumin 4.8 g/dL (3.5-5.0); Alkaline Phosphatase 100 U/L (40-150); Anion Gap 20 mmol/L (10-20); BUN (Urea Nitrogen) 22 mg/dL (9.8-20.1); Bilirubin, Total 0.4 mg/dL (0.2-1.2); Calc. Creatinine Clearance 0 mL/min (70-130); Calcium 10.1 mg/dL (7.8-10.44); Carbon Dioxide 22 mmol/L (22-29); Chloride 102 mmol/L (98-107); Estimated GFR-MDRD Greater than 90; Globulin 3.4 g/dL (2.4-3.5); Glucose 98 mg/dL (70-105); Potassium 3.4 mmol/L (3.5-5.1); Protein, Total 8.2 g/dL (6.0-8.3); Sodium 141 mmol/L (136-145)
[2018-09-15] MEDS ORDERED: Ondansetron PF 4 MG/2 ML Vial ONE (08:59)
[2018-09-15 09:16] LABS: Bilirubin Moderate (Negative); Blood, Urine Large (Negative); Clarity CLOUDY (Clear); Glucose, Urine (Dipstick) Negative (Negative); Leukocyte Negative (Negative); Nitrite Negative (Negative); Protein, Urine (Dipstick) 300 mg/dL (Neg-Trace); Specific Gravity, Urine 1.035 (1.002-1.036); pH, Urine 5.5 (5.0-9.0)
[2018-09-15 09:21] LABS: Bacteria/HPF None Seen HPF (None Seen); Pathc Cast-AUWi Flag 2.44 (0-2.49)
[2018-09-15] MEDS ORDERED: Mag-Al 1200 mg/1200 mg/30 ML UDCUP ONE (09:33)
[2018-09-15] MEDS ORDERED: Lidocaine Viscous Sol 2% 15 ml UD Cup ONE (09:33)
[2018-09-15 09:38] LABS: Hyaline Casts/LPF 0-3 HYALINE CAST LPF (0-3 Hyaline)
== END 2018-09-15 10:29 | disposition home or self-care (01) ==
LOC: ERS 07:38
DX: R11.2 Nausea with vomiting, unspecified (principal); Z71.6 Tobacco abuse counseling; I10 Essential (primary) hypertension; G43.909 Migraine, unspecified, not intractable, without status migrainosus; J44.9 Chronic obstructive pulmonary disease, unspecified; K21.9 Gastro-esophageal reflux disease without esophagitis; I25.2 Old myocardial infarction; F17.210 Nicotine dependence, cigarettes, uncomplicated; Z79.899 Other long term (current) drug therapy
CPT/HCPCS: 36415; 80053; 81003; 81015; 83690; 85025; 87086; 96361; 96374; 99406; J2405

== ENCOUNTER 2020-09-12 15:54 | Outpatient (CLI) | payer OTHER | END 2020-09-12 15:55 | disposition home or self-care (01) | LOC: BICRAD 15:54 | PROVIDERS: ATTEND Family Medicine | DX: M25.551 Pain in right hip (principal); M54.5 Low back pain | CPT/HCPCS: 72100 ==

== ENCOUNTER 2020-12-03 14:34 | Emergency (ER) | payer OTHER ==
[2020-12-03] MEDS ORDERED: Lidocaine Viscous Sol 2% 15 ml UD Cup ONE (16:00)
[2020-12-03] MEDS ORDERED: Ondansetron ODT 4 MG TAB ONE (16:00)
[2020-12-03] MEDS ORDERED: Mag-Al 1200 mg/1200 mg/30 ML UDCUP ONE (16:00)
[2020-12-03 16:53] LABS: #Basophils 0.1 thou/uL (0.0-0.2); #Eosinphils 0.2 thou/uL (0.0-0.7); #Lymphocytes 2.5 thou/uL (1.20-3.40); #Monocytes 0.8 thou/uL (0.11-0.59); #Neutrophils 6.9 thou/uL (1.40-6.50); %Basophils 0.8 % (0.0-1.0); %Monocytes 7.6 % (0.0-10.0); %Neutrophils 65.6 % (42.0-75.0); Hemoglobin 14.8 g/dL (12.0-16.0); Mean Corpuscular HGB CONC 34.3 g/dL (32.0-36.0); Mean Corpuscular Hemoglobin 33.2 pg (27.0-31.0); Mean Corpuscular Volume 96.6 fL (78.0-98.0); Mean Platelet Volume 7.8 fL (7.4-10.4); Platelet Count 324 thou/uL (130-400); Red Blood Cell (RBC) Count 4.47 mill/uL (4.20-5.40); White Blood Cell (WBC) Count 10.5 thou/uL (4.8-10.8)
[2020-12-03] MEDS ORDERED: Dicyclomine 20 MG TAB ONE (17:01)
[2020-12-03 17:14] LABS: ALT (SGPT) 9 U/L (8-55); AST (SGOT) 14 U/L (5-34); Alkaline Phosphatase 74 U/L (40-110); Anion Gap 18 mmol/L (10-20); BUN (Urea Nitrogen) 11 mg/dL (9.8-20.1); Bilirubin, Total 0.2 mg/dL (0.2-1.2); Calc. Creatinine Clearance 0 mL/min (70-130); Calcium 9.4 mg/dL (7.8-10.44); Carbon Dioxide 23 mmol/L (23-31); Chloride 103 mmol/L (98-107); Globulin 3.1 g/dL (2.4-3.5); Glucose 91 mg/dL (80-115); Lipase 27 U/L (8-78); Potassium 3.5 mmol/L (3.5-5.1); Protein, Total 7.1 g/dL (5.8-8.1); Sodium 140 mmol/L (136-145)
== END 2020-12-03 17:40 | disposition home or self-care (01) ==
LOC: ERS 14:34
DX: K21.9 Gastro-esophageal reflux disease without esophagitis (principal); I10 Essential (primary) hypertension; J44.9 Chronic obstructive pulmonary disease, unspecified; I25.2 Old myocardial infarction; F17.210 Nicotine dependence, cigarettes, uncomplicated
CPT/HCPCS: 36415; 71045; 80053; 83690; 84484; 85025; 93005; 94760; Q0162

== ENCOUNTER 2020-12-07 16:14 | Emergency (ER) | payer OTHER ==
[~2020-12-07 16:14] MED LIST changes: -ISOVUE-370 76%-LOCM 1 ML ONE; +Iopamidol-370 76% 500 ML 1 ML ONE
[2020-12-07] MEDS ORDERED: Morphine 4 MG/ML VIAL ONE ×3 (16:49→20:08)
[2020-12-07] MEDS ORDERED: Ondansetron PF 4 MG/2 ML Vial ONE (16:49)
[2020-12-07 17:12] LABS: #Basophils 0.1 thou/uL (0.0-0.2); #Eosinphils 0.1 thou/uL (0.0-0.7); #Lymphocytes 2.5 thou/uL (1.20-3.40); #Monocytes 0.7 thou/uL (0.11-0.59); #Neutrophils 9.2 thou/uL (1.40-6.50); %Basophils 0.7 % (0.0-1.0); %Eosinophils 1.2 % (0.0-10.0); %Monocytes 5.6 % (0.0-10.0); %Neutrophils 72.5 % (42.0-75.0); Hemoglobin 15.9 g/dL (12.0-16.0); Mean Corpuscular HGB CONC 32.6 g/dL (32.0-36.0); Mean Corpuscular Hemoglobin 31.8 pg (27.0-31.0); Mean Corpuscular Volume 97.6 fL (78.0-98.0); Mean Platelet Volume 8.5 fL (7.4-10.4); Platelet Count 317 thou/uL (130-400); RBC Distribution Width 11.9 % (11.5-14.5); Red Blood Cell (RBC) Count 4.99 mill/uL (4.20-5.40); White Blood Cell (WBC) Count 12.7 thou/uL (4.8-10.8)
[2020-12-07 17:29] LABS: Bilirubin Negative (Negative); Blood, Urine 2+ (Negative); Clarity Turbid (Clear); Glucose, Urine (Dipstick) Normal (Negative); Ketone, Urine 10 mg/dL (Negative); Leukocyte 25 Leu/uL (Negative); Nitrite Negative (Negative); Protein, Urine (Dipstick) 50 mg/dL (Neg-Trace); RBC/HPF 21-50 HPF (0-3); Specific Gravity, Urine 1.031 (1.002-1.036); Urobilinogen Normal mg/dL (Less than 2); pH, Urine 5.5 (5.0-9.0)
[2020-12-07 17:30] LABS: Bacteria/HPF Rare-Few HPF (None Seen)
[2020-12-07 17:35] LABS: ALT (SGPT) 8 U/L (8-55); AST (SGOT) 18 U/L (5-34); Albumin 4.2 g/dL (3.4-4.8); Alkaline Phosphatase 79 U/L (40-110); Anion Gap 20 mmol/L (10-20); BUN (Urea Nitrogen) 14 mg/dL (9.8-20.1); Bilirubin, Total 0.2 mg/dL (0.2-1.2); Calc. Creatinine Clearance 0 mL/min (70-130); Calcium 9.6 mg/dL (7.8-10.44); Carbon Dioxide 19 mmol/L (23-31); Chloride 103 mmol/L (98-107); Globulin 3.4 g/dL (2.4-3.5); Glucose 98 mg/dL (80-115); Lipase 100 U/L (8-78); Potassium 3.8 mmol/L (3.5-5.1); Protein, Total 7.6 g/dL (5.8-8.1); Sodium 138 mmol/L (136-145)
[2020-12-07] MEDS ORDERED: Mag-Al 1200 mg/1200 mg/30 ML UDCUP ONE (19:12)
[2020-12-07] MEDS ORDERED: Lidocaine Viscous Sol 2% 15 ml UD Cup ONE (19:12)
[2020-12-07] MEDS ORDERED: Pantoprazole 40 MG VIAL ONE (19:12)
== END 2020-12-07 20:16 | disposition home or self-care (01) ==
LOC: ERS 16:14
DX: R10.13 Epigastric pain (principal); R11.2 Nausea with vomiting, unspecified; J44.9 Chronic obstructive pulmonary disease, unspecified; K21.9 Gastro-esophageal reflux disease without esophagitis; I25.2 Old myocardial infarction; F17.210 Nicotine dependence, cigarettes, uncomplicated
CPT/HCPCS: 74177; 80053; 81003; 81015; 83605; 83690; 84484; 85025; 93005; 96374; 96375; 96376; C9113; J2270; J2405; Q9967

== ENCOUNTER 2021-11-09 17:07 | Emergency (ER) | payer OTHER ==
[2021-11-09] MEDS ORDERED: Acetaminophen 500 MG TAB ONE (17:54)
[2021-11-09] MEDS ORDERED: Dicyclomine 20 MG TAB ONE (17:54)
[2021-11-09] MEDS ORDERED: Ondansetron ODT 4 MG TAB ONE (17:54)
[2021-11-09 18:06] LABS: #Basophils 0.1 thou/uL (0.0-0.2); #Eosinphils 0.1 thou/uL (0.0-0.7); #Lymphocytes 2.2 thou/uL (1.20-3.40); #Monocytes 0.4 thou/uL (0.11-0.59); #Neutrophils 5.2 thou/uL (1.40-6.50); %Basophils 0.7 % (0.0-1.0); %Eosinophils 0.8 % (0.0-10.0); %Lymphocytes 27.2 % (21.0-51.0); %Monocytes 5.5 % (0.0-10.0); %Neutrophils 65.8 % (42.0-75.0); Hemoglobin 13.6 g/dL (12.0-16.0); Mean Corpuscular HGB CONC 33.5 g/dL (32.0-36.0); Mean Corpuscular Hemoglobin 33.2 pg (27.0-31.0); Mean Corpuscular Volume 99.1 fL (78.0-98.0); Mean Platelet Volume 7.5 fL (7.4-10.4); Platelet Count 334 thou/uL (130-400); RBC Distribution Width 13.8 % (11.5-14.5); White Blood Cell (WBC) Count 7.9 thou/uL (4.8-10.8)
[2021-11-09 18:31] LABS: ALT (SGPT) 9 U/L (8-55); AST (SGOT) 15 U/L (5-34); Albumin 3.9 g/dL (3.4-4.8); Alkaline Phosphatase 61 U/L (40-110); Anion Gap 17 mmol/L (10-20); BUN (Urea Nitrogen) 9 mg/dL (9.8-20.1); Bilirubin, Total Less than 0.2 mg/dL (0.2-1.2); Calc. Creatinine Clearance 0 mL/min (70-130); Calcium 9.1 mg/dL (7.8-10.44); Carbon Dioxide 19 mmol/L (23-31); Chloride 111 mmol/L (98-107); Globulin 2.5 g/dL (2.4-3.5); Glucose 78 mg/dL (80-115); Lipase 32 U/L (8-78); Potassium 3.5 mmol/L (3.5-5.1); Protein, Total 6.4 g/dL (5.8-8.1); Sodium 143 mmol/L (136-145)
== END 2021-11-09 19:33 | disposition left against medical advice (07) ==
LOC: ERS 17:07
DX: R10.13 Epigastric pain (principal); I10 Essential (primary) hypertension; G43.909 Migraine, unspecified, not intractable, without status migrainosus; J44.9 Chronic obstructive pulmonary disease, unspecified; K21.9 Gastro-esophageal reflux disease without esophagitis; I25.2 Old myocardial infarction; F17.210 Nicotine dependence, cigarettes, uncomplicated
CPT/HCPCS: 36415; 80053; 83690; 84484; 85025; 93005; Q0162

== ENCOUNTER 2021-11-14 20:16 | Emergency (ER) | payer OTHER, SELFPAY ==
[2021-11-14] MEDS ORDERED: Metoclopramide HCl 10 MG/2 ML VIAL ONE (21:36)
[2021-11-14] MEDS ORDERED: diphenhydrAMINE 50 MG/ML VIAL ONE (21:36)
[2021-11-14 22:18] LABS: #Basophils 0.1 thou/uL (0.0-0.2); #Lymphocytes 1.8 thou/uL (1.20-3.40); #Monocytes 0.6 thou/uL (0.11-0.59); #Neutrophils 5.5 thou/uL (1.40-6.50); %Basophils 0.7 % (0.0-1.0); %Eosinophils 0.3 % (0.0-10.0); %Lymphocytes 22.5 % (21.0-51.0); %Monocytes 7.7 % (0.0-10.0); %Neutrophils 68.8 % (42.0-75.0); Hemoglobin 14.5 g/dL (12.0-16.0); Mean Corpuscular HGB CONC 33.5 g/dL (32.0-36.0); Mean Corpuscular Volume 98.4 fL (78.0-98.0); Mean Platelet Volume 7.7 fL (7.4-10.4); Platelet Count 339 thou/uL (130-400); RBC Distribution Width 13.5 % (11.5-14.5); Red Blood Cell (RBC) Count 4.39 mill/uL (4.20-5.40)
[2021-11-14 22:34] LABS: ALT (SGPT) 7 U/L (8-55); AST (SGOT) 18 U/L (5-34); Albumin 4.2 g/dL (3.4-4.8); Alkaline Phosphatase 68 U/L (40-110); Anion Gap 22 mmol/L (10-20); BUN (Urea Nitrogen) 16 mg/dL (9.8-20.1); Bilirubin, Total Less than 0.2 mg/dL (0.2-1.2); Calc. Creatinine Clearance 0 mL/min (70-130); Carbon Dioxide 13 mmol/L (23-31); Chloride 107 mmol/L (98-107); Globulin 3.2 g/dL (2.4-3.5); Glucose 72 mg/dL (80-115); Lipase 14 U/L (8-78); Magnesium 1.9 mg/dL (1.6-2.6); Potassium 4.1 mmol/L (3.5-5.1); Protein, Total 7.4 g/dL (5.8-8.1); Sodium 138 mmol/L (136-145)
[2021-11-14] MEDS ORDERED: methylPREDNISolone Sod Succ/PF 125 MG/2 ML VIAL ONE (22:40)
[2021-11-14] MEDS ORDERED: Morphine 2 MG/ML VIAL ONE (23:30)
[2021-11-14] MEDS ORDERED: Dicyclomine 20 MG/2 ML VIAL ONE (23:31)
== END 2021-11-15 00:22 | disposition home or self-care (01) ==
LOC: ERS 20:16
DX: R10.13 Epigastric pain (principal); G89.29 Other chronic pain; J44.1 Chronic obstructive pulmonary disease with (acute) exacerbation; K21.9 Gastro-esophageal reflux disease without esophagitis; I25.2 Old myocardial infarction
CPT/HCPCS: 71045; 80053; 83690; 83735; 84484; 85025; 94640; 96372; 96374; 96375; J0500; J1200; J2270; J2765; J2930; J7620

== ENCOUNTER 2021-12-22 12:29 | Inpatient (IN) | payer SELFPAY ==
[2021-12-22 13:02] LABS: #Basophils 0.1 thou/uL (0.0-0.2); #Lymphocytes 2.1 thou/uL (1.20-3.40); #Monocytes 0.9 thou/uL (0.11-0.59); %Basophils 0.6 % (0.0-1.0); %Eosinophils 0.3 % (0.0-10.0); %Lymphocytes 16.2 % (21.0-51.0); %Monocytes 7.2 % (0.0-10.0); %Neutrophils 75.7 % (42.0-75.0); Hemoglobin 14.1 g/dL (12.0-16.0); Mean Corpuscular HGB CONC 32.8 g/dL (32.0-36.0); Mean Corpuscular Hemoglobin 32.1 pg (27.0-31.0); Mean Platelet Volume 8.5 fL (7.4-10.4); Platelet Count 271 thou/uL (130-400); RBC Distribution Width 14.1 % (11.5-14.5); Red Blood Cell (RBC) Count 4.39 mill/uL (4.20-5.40); White Blood Cell (WBC) Count 13.1 thou/uL (4.8-10.8)
[2021-12-22 13:27] LABS: ALT (SGPT) 7 U/L (8-55); AST (SGOT) 29 U/L (5-34); Albumin 4.5 g/dL (3.4-4.8); Alkaline Phosphatase 109 U/L (40-110); Anion Gap 24 mmol/L (10-20); BUN (Urea Nitrogen) 27 mg/dL (9.8-20.1); Bilirubin, Total 0.2 mg/dL (0.2-1.2); CK (CPK) 117 U/L (29-168); Calc. Creatinine Clearance 0 mL/min (70-130); Calcium 8.7 mg/dL (7.8-10.44); Carbon Dioxide 14 mmol/L (23-31); Chloride 105 mmol/L (98-107); Estimated GFR 76; Globulin 2.9 g/dL (2.4-3.5); Glucose 65 mg/dL (80-115); Potassium 3.8 mmol/L (3.5-5.1); Protein, Total 7.4 g/dL (5.8-8.1); Sodium 139 mmol/L (136-145)
[2021-12-22 13:44] LABS: CKMB 2.8 ng/mL (0-6.6)
[2021-12-22 16:02] LABS: Bacteria/HPF None Seen HPF (None Seen); Bilirubin Negative (Negative); Blood, Urine 3+ (Negative); Clarity Clear (Clear); Glucose, Urine (Dipstick) Normal (Negative); Ketone, Urine Greater than 150 mg/dL (Negative); Leukocyte Negative Leu/uL (Negative); Nitrite Negative (Negative); Protein, Urine (Dipstick) 100 mg/dL (Neg-Trace); RBC/HPF 21-50 HPF (0-3); Specific Gravity, Urine 1.024 (1.002-1.036); Squamous Epithelial 0-3 HPF (0-3); Urobilinogen Normal mg/dL (Less than 2); WBC/HPF 0-3 HPF (0-3); pH, Urine 5.5 (5.0-9.0)
[2021-12-22 16:55] LABS: Troponin I 0.028 ng/mL (< 0.028)
[2021-12-22 17:26] LABS: Actual Bicarbonate (HCO3v) 15 mEq/L (22-28); Base Excess -10.6 mEq/L (-2.0 to +3.0); Calcium, Ionized (venous) 1.13 mmol/L (1.16-1.32); Chloride (VBG) 108 mmol/L (98-106); Potassium (VBG) 4.45 mmol/L (3.70-5.30); Sodium 140.2 mmol/L (133-146); pH (venous) 7.27 (7.32-7.43)
[2021-12-22 17:45] LABS: Acetaminophen Less than 10.0 mcg/mL (10.0-30.0); Alcohol Less than 10 mg/dL (Less than 10)
[2021-12-22 17:49] LABS: Salicylate 53.3 mg/dL (15.0-30.0)
[2021-12-22 18:14] LABS: Amphetamine Not Detected (NotDetected); Barbiturates Screen Not Detected (NotDetected); Benzodiazepine Screen Not Detected (NotDetected); Cocaine Metabolite Screen Not Detected (NotDetected); Methadone Not Detected (NotDetected); Methamphetamine Not Detected (NotDetected); Opiate Screen Not Detected (NotDetected); Oxycodone Screen Not Detected (NotDetected); Phencyclidine (PCP) Not Detected (NotDetected); THC/Cannabinoid Screen Not Detected (NotDetected); Tricyclic Screen Not Detected (NotDetected)
[2021-12-22 19:28] LABS: Troponin I 0.037 ng/mL (< 0.028)
[2021-12-22] MEDS ORDERED: Ondansetron PF 4 MG/2 ML Vial IVP PRN (20:01)
[2021-12-22] MEDS ORDERED: Acetaminophen 325 MG TAB PO PRN (20:01)
[2021-12-22] MEDS ORDERED: Magnesium 2 GM/50 ML(in water) 2 GM in Premix Bag 1 BAG IVPB SCH (20:15)
[2021-12-22] MEDS ORDERED: Sodium Bicarb 50 MEQ/50 ML Abboject 8.4% SYRINGE IVP SCH (20:15)
[2021-12-22] MEDS ORDERED: Sodium Bicarb 50 MEQ/50 ML Abboject 8.4% SYRINGE ONE ×2 (20:42→20:43)
[2021-12-22] MEDS ORDERED: Dextrose 50% Abboject 50 ML SYRINGE SLOW IVP SCH (21:00)
[2021-12-22] MEDS ORDERED: Dextrose 50% Abboject 50 ML SYRINGE ONE (21:18)
[2021-12-22 21:30] LABS: Anion Gap 18 mmol/L (10-20); BUN (Urea Nitrogen) 22 mg/dL (9.8-20.1); Calc. Creatinine Clearance 0 mL/min (70-130); Calcium 8.7 mg/dL (7.8-10.44); Carbon Dioxide 23 mmol/L (23-31); Chloride 106 mmol/L (98-107); Estimated GFR 85; Glucose 94 mg/dL (80-115); Magnesium 1.8 mg/dL (1.6-2.6); Potassium 3.4 mmol/L (3.5-5.1); Sodium 144 mmol/L (136-145)
[2021-12-22 21:57] LABS: Salicylate 40.3 mg/dL (15.0-30.0)
[2021-12-22] MEDS ORDERED: Activated Charcoal/Sorbitol 25 GM/120 ML TUBE ONE (22:02)
[2021-12-22 23:09] LABS: Anion Gap 18 mmol/L (10-20); BUN (Urea Nitrogen) 21 mg/dL (9.8-20.1); Calc. Creatinine Clearance 0 mL/min (70-130); Calcium 8.9 mg/dL (7.8-10.44); Carbon Dioxide 21 mmol/L (23-31); Chloride 107 mmol/L (98-107); Estimated GFR 69; Glucose 210 mg/dL (80-115); Magnesium 2.6 mg/dL (1.6-2.6); Sodium 143 mmol/L (136-145)
[2021-12-22 23:13] LABS: Salicylate 39.6 mg/dL (15.0-30.0)
[2021-12-22 23:14] LABS: Troponin I 0.042 ng/mL (< 0.028)
[2021-12-23 02:25] VITALS: BMI 17.9
[2021-12-23 03:03] LABS: #Basophils 0.1 thou/uL (0.0-0.2); #Lymphocytes 1.3 thou/uL (1.20-3.40); #Monocytes 0.9 thou/uL (0.11-0.59); #Neutrophils 10.8 thou/uL (1.40-6.50); %Basophils 0.4 % (0.0-1.0); %Eosinophils 0.2 % (0.0-10.0); %Lymphocytes 10.1 % (21.0-51.0); %Monocytes 6.6 % (0.0-10.0); %Neutrophils 82.7 % (42.0-75.0); Mean Corpuscular HGB CONC 34.8 g/dL (32.0-36.0); Mean Corpuscular Hemoglobin 33.5 pg (27.0-31.0); Mean Corpuscular Volume 96.2 fL (78.0-98.0); Mean Platelet Volume 8.2 fL (7.4-10.4); Platelet Count 239 thou/uL (130-400); RBC Distribution Width 13.5 % (11.5-14.5); Red Blood Cell (RBC) Count 3.89 mill/uL (4.20-5.40); White Blood Cell (WBC) Count 13.1 thou/uL (4.8-10.8)
[2021-12-23] MEDS ORDERED: Amoxicillin/Potassium Clav 875 MG TAB PO SCH (03:15)
[2021-12-23 03:27] LABS: Anion Gap 14 mmol/L (10-20); BUN (Urea Nitrogen) 18 mg/dL (9.8-20.1); Calc. Creatinine Clearance 50 mL/min (70-130); Calcium 8.8 mg/dL (7.8-10.44); Carbon Dioxide 27 mmol/L (23-31); Chloride 107 mmol/L (98-107); Estimated GFR 83; Glucose 181 mg/dL (80-115); Magnesium 2.3 mg/dL (1.6-2.6); Salicylate 29.7 mg/dL (15.0-30.0); Sodium 145 mmol/L (136-145)
[2021-12-23] MEDS ORDERED: Amoxicillin/Potassium Clav 875 MG TAB ONE (03:56)
[2021-12-23 05:18] LABS: SARS-CoV-2 NAA Rapid Test Not Detected (NotDetected)
[2021-12-23] MEDS ORDERED: Potassium Chloride 20 MEQ TAB PO SCH (05:30)
[2021-12-23] MEDS ORDERED: Potassium Chloride 20 MEQ TAB ONE (05:30)
[2021-12-23 05:55] LABS: Anion Gap 14 mmol/L (10-20); BUN (Urea Nitrogen) 17 mg/dL (9.8-20.1); Calc. Creatinine Clearance 54 mL/min (70-130); Calcium 8.7 mg/dL (7.8-10.44); Carbon Dioxide 27 mmol/L (23-31); Chloride 105 mmol/L (98-107); Estimated GFR 93; Glucose 180 mg/dL (80-115); Magnesium 2.1 mg/dL (1.6-2.6); Salicylate 25.6 mg/dL (15.0-30.0); Sodium 143 mmol/L (136-145)
[2021-12-23 07:24] LABS: Anion Gap 14 mmol/L (10-20); BUN (Urea Nitrogen) 14 mg/dL (9.8-20.1); Calc. Creatinine Clearance 58 mL/min (70-130); Calcium 8.7 mg/dL (7.8-10.44); Carbon Dioxide 28 mmol/L (23-31); Chloride 104 mmol/L (98-107); Estimated GFR 98; Glucose 153 mg/dL (80-115); Potassium 3.2 mmol/L (3.5-5.1); Salicylate 18.4 mg/dL (15.0-30.0); Sodium 143 mmol/L (136-145)
[2021-12-23] MEDS: Potassium Bicarbonate/Cit Ac 20 MEQ TAB PO SCH ×4 (07:51→17:18)
[2021-12-23 09:33] LABS: Phosphorus Less than 1.0 mg/dL (2.3-4.7)
[2021-12-23] MEDS ORDERED: Enoxaparin Sodium 30 MG/0.3 ML SYRINGE ONE (09:48)
[2021-12-23] MEDS: Enoxaparin Sodium 30 MG/0.3 ML SYRINGE SC SCH (09:52)
[2021-12-23 13:12] LABS: Anion Gap 14 mmol/L (10-20); BUN (Urea Nitrogen) 9 mg/dL (9.8-20.1); Calc. Creatinine Clearance 66 mL/min (70-130); Calcium 9.1 mg/dL (7.8-10.44); Carbon Dioxide 30 mmol/L (23-31); Chloride 103 mmol/L (98-107); Estimated GFR 101; Glucose 131 mg/dL (80-115); Potassium 4.2 mmol/L (3.5-5.1); Sodium 143 mmol/L (136-145)
[2021-12-23] MEDS: Mometasone 200 MCG/Formoterol 5 MCG 120 PUFF INHALER INH SCH (18:46)
[2021-12-23] MEDS: Amoxicillin/Potassium Clav 875 MG TAB PO SCH (20:57)
[2021-12-24 05:07] LABS: #Basophils 0.1 thou/uL (0.0-0.2); #Eosinphils 0.1 thou/uL (0.0-0.7); #Lymphocytes 2.5 thou/uL (1.20-3.40); #Neutrophils 7.1 thou/uL (1.40-6.50); %Basophils 0.5 % (0.0-1.0); %Eosinophils 0.9 % (0.0-10.0); %Lymphocytes 23.2 % (21.0-51.0); %Monocytes 9.4 % (0.0-10.0); Hemoglobin 13.6 g/dL (12.0-16.0); Mean Corpuscular HGB CONC 33.1 g/dL (32.0-36.0); Mean Corpuscular Hemoglobin 31.9 pg (27.0-31.0); Mean Corpuscular Volume 96.4 fL (78.0-98.0); Mean Platelet Volume 8.2 fL (7.4-10.4); Platelet Count 264 thou/uL (130-400); RBC Distribution Width 13.3 % (11.5-14.5); Red Blood Cell (RBC) Count 4.26 mill/uL (4.20-5.40); White Blood Cell (WBC) Count 10.8 thou/uL (4.8-10.8)
[2021-12-24 05:39] LABS: Anion Gap 13 mmol/L (10-20); BUN (Urea Nitrogen) 9 mg/dL (9.8-20.1); Calc. Creatinine Clearance 75 mL/min (70-130); Calcium 9.7 mg/dL (7.8-10.44); Carbon Dioxide 27 mmol/L (23-31); Chloride 104 mmol/L (98-107); Estimated GFR 105; Glucose 97 mg/dL (80-115); Potassium 3.7 mmol/L (3.5-5.1); Sodium 140 mmol/L (136-145)
[2021-12-24] MEDS: Mometasone 200 MCG/Formoterol 5 MCG 120 PUFF INHALER INH SCH (07:15)
[2021-12-24] MEDS: Enoxaparin Sodium 30 MG/0.3 ML SYRINGE SC SCH (08:41)
[2021-12-24] MEDS: Amoxicillin/Potassium Clav 875 MG TAB PO SCH (08:41)
[2021-12-24 11:49] VITALS: BP 146/80; TEMP 98
== END 2021-12-24 13:31 | disposition home or self-care (01) | DRG 917 ==
LOC: ERS 12:29 → ERHOLD 19:24 → NEURO 12-23 11:49
PROVIDERS: ADMIT Internal Medicine; ATTEND Internal Medicine
DX: T39.091A Poisoning by salicylates, accidental (unintentional), initial encounter (principal); G93.41 Metabolic encephalopathy; E87.2 Acidosis; I10 Essential (primary) hypertension; G40.909 Epilepsy, unspecified, not intractable, without status epilepticus; J44.9 Chronic obstructive pulmonary disease, unspecified; K21.9 Gastro-esophageal reflux disease without esophagitis; G89.29 Other chronic pain; M54.9 Dorsalgia, unspecified; J01.90 Acute sinusitis, unspecified; D72.829 Elevated white blood cell count, unspecified; E87.70 Fluid overload, unspecified; E87.6 Hypokalemia; F17.210 Nicotine dependence, cigarettes, uncomplicated; I25.2 Old myocardial infarction; Z90.49 Acquired absence of other specified parts of digestive tract; Z90.710 Acquired absence of both cervix and uterus; Z88.5 Allergy status to narcotic agent; Z88.8 Allergy status to other drugs, medicaments and biological substances
CPT/HCPCS: 36415; 36416; 70450; 71045; 80048; 80053; 80179; 80306; 80307; 81003; 81015; 82010; 82274; 82550; 82553; 82805; 83605; 83735; 84100; 84443; 84484; 85025; 93005; J1650; J3475; J3480; J7070; J7999; U0002

== ENCOUNTER 2022-01-13 08:11 | Emergency (ER) | payer SELFPAY ==
[2022-01-13] MEDS ORDERED: Mag-Al 1200 mg/1200 mg/30 ML UDCUP ONE (09:08)
[2022-01-13] MEDS ORDERED: Ondansetron PF 4 MG/2 ML Vial ONE (09:08)
[2022-01-13] MEDS ORDERED: Lidocaine Viscous Sol 2% 15 ml UD Cup ONE (09:08)
[2022-01-13] MEDS ORDERED: Dicyclomine 20 MG/2 ML VIAL ONE (09:08)
[2022-01-13 09:10] LABS: #Basophils 0.1 thou/uL (0.0-0.2); #Eosinphils 0.1 thou/uL (0.0-0.7); #Lymphocytes 1.8 thou/uL (1.20-3.40); #Monocytes 0.7 thou/uL (0.11-0.59); #Neutrophils 5.9 thou/uL (1.40-6.50); %Eosinophils 1.5 % (0.0-10.0); %Monocytes 7.8 % (0.0-10.0); %Neutrophils 68.7 % (42.0-75.0); Hemoglobin 14.9 g/dL (12.0-16.0); Mean Corpuscular HGB CONC 31.7 g/dL (32.0-36.0); Mean Corpuscular Hemoglobin 31.5 pg (27.0-31.0); Mean Corpuscular Volume 99.1 fL (78.0-98.0); Mean Platelet Volume 8.4 fL (7.4-10.4); Platelet Count 394 thou/uL (130-400); RBC Distribution Width 12.7 % (11.5-14.5); Red Blood Cell (RBC) Count 4.73 mill/uL (4.20-5.40); White Blood Cell (WBC) Count 8.7 thou/uL (4.8-10.8)
[2022-01-13] MEDS ORDERED: Famotidine/PF 20 mg/2ml Vial ONE (09:10)
[2022-01-13 09:31] LABS: ALT (SGPT) Less than 7 U/L (8-55); AST (SGOT) 16 U/L (5-34); Albumin 4.4 g/dL (3.4-4.8); Alkaline Phosphatase 82 U/L (40-110); Anion Gap 16 mmol/L (10-20); BUN (Urea Nitrogen) 11 mg/dL (9.8-20.1); Bilirubin, Total 0.3 mg/dL (0.2-1.2); Calc. Creatinine Clearance 0 mL/min (70-130); Calcium 9.8 mg/dL (7.8-10.44); Carbon Dioxide 21 mmol/L (23-31); Chloride 105 mmol/L (98-107); Estimated GFR 100; Glucose 98 mg/dL (80-115); Lipase 12 U/L (8-78); Potassium 3.9 mmol/L (3.5-5.1); Protein, Total 7.4 g/dL (5.8-8.1); Sodium 138 mmol/L (136-145)
[2022-01-13] MEDS ORDERED: Cyclobenzaprine 10 MG TAB ONE (10:38)
[2022-01-13] MEDS ORDERED: Morphine 4 MG/ML VIAL ONE (10:38)
[2022-01-13] MEDS ORDERED: Haloperidol Lactate 5 MG/ML VIAL ONE (12:20)
[2022-01-13] MEDS ORDERED: diphenhydrAMINE 50 MG/ML VIAL ONE (12:21)
[2022-01-13] MEDS ORDERED: Iopamidol-370 76% 500 ML 1 ML ONE (14:32)
== END 2022-01-13 12:44 | disposition home or self-care (01) ==
LOC: ERS 08:11
DX: R10.13 Epigastric pain (principal); K21.9 Gastro-esophageal reflux disease without esophagitis; J44.9 Chronic obstructive pulmonary disease, unspecified; I25.2 Old myocardial infarction; F17.210 Nicotine dependence, cigarettes, uncomplicated
CPT/HCPCS: 36415; 71045; 74177; 80053; 83690; 84484; 85025; 93005; 94760; 96361; 96372; 96374; 96375; J1200; J1630; J2270; J2405; Q9967; S0028

== ENCOUNTER 2023-03-17 16:03 | Emergency (ER) | payer BC, SELFPAY ==
[2023-03-17] MEDS ORDERED: Acetaminophen 325 MG TAB ONE (16:48)
[2023-03-17 17:27] LABS: #Basophils 0.1 thou/uL (0.0-0.2); #Eosinphils 0.2 thou/uL (0.0-0.7); #Monocytes 0.5 thou/uL (0.11-0.59); #Neutrophils 7.8 thou/uL (1.40-6.50); %Basophils 0.5 % (0.0-1.0); %Eosinophils 1.7 % (0.0-10.0); %Lymphocytes 21.5 % (21.0-51.0); %Monocytes 4.8 % (0.0-10.0); %Neutrophils 71.2 % (42.0-75.0); Hematocrit 52.1 % (36.0-47.0); Hemoglobin 17.6 g/dL (12.0-16.0); Mean Corpuscular HGB CONC 33.8 g/dL (32.0-36.0); Mean Corpuscular Hemoglobin 30.7 pg (27.0-31.0); Mean Corpuscular Volume 90.9 fl (78.0-98.0); Mean Platelet Volume 10.5 fL (7.4-10.4); Platelet Count 297 10x3/uL (130-400); RBC Distribution Width 13.6 % (11.5-14.5); Red Blood Cell (RBC) Count 5.73 mill/uL (4.20-5.40)
[2023-03-17 17:50] LABS: Troponin I Less than 0.010 ng/mL (< 0.028)
[2023-03-17 17:55] LABS: ALT (SGPT) 10 U/L (8-55); AST (SGOT) 17 U/L (5-34); Alkaline Phosphatase 118 U/L (40-110); Anion Gap 20 mmol/L (10-20); BUN (Urea Nitrogen) 11 mg/dL (9.8-20.1); Bilirubin, Total 0.2 mg/dL (0.2-1.2); Calc. Creatinine Clearance 0 mL/min (70-130); Calcium 10.3 mg/dL (7.8-10.44); Carbon Dioxide 18 mmol/L (23-31); Chloride 105 mmol/L (98-107); Estimated GFR 98; Globulin 3.4 g/dL (2.4-3.5); Glucose 89 mg/dL (80-115); Magnesium 1.8 mg/dL (1.6-2.6); Potassium 4.2 mmol/L (3.5-5.1); Protein, Total 8.4 g/dL (5.8-8.1); Sodium 139 mmol/L (136-145)
== END 2023-03-17 19:54 | disposition home or self-care (01) ==
LOC: ERS 16:03
DX: M79.602 Pain in left arm (principal); I10 Essential (primary) hypertension; K21.9 Gastro-esophageal reflux disease without esophagitis; J44.9 Chronic obstructive pulmonary disease, unspecified; F17.210 Nicotine dependence, cigarettes, uncomplicated
CPT/HCPCS: 36415; 71045; 80053; 83735; 84484; 85025; 93005

== ENCOUNTER 2024-02-02 10:12 | Emergency (ER) | payer BC, SELFPAY | END 2024-02-02 12:14 | disposition home or self-care (01) | LOC: ERS 10:12 | DX: B02.9 Zoster without complications (principal); F17.210 Nicotine dependence, cigarettes, uncomplicated | CPT/HCPCS: 99282 ==